=== PATIENT | female | born 1975 | race Caucasian/White ===

== ENCOUNTER 2023-03-27 17:43 | Emergency (ER) | payer OTHER, MEDICAID ==
[~2023-03-27] VITALS: Ht 162.6 cm; Wt 74.8 kg
[2023-03-27 17:44] VITALS: BP 149/69; PULSE 72; RESP 17; TEMP 97.7; O2SAT 97
--- NOTE | 2023-03-27 19:33 | NUR ---
PT IN CHAIR A
[2023-03-27] MEDS ORDERED: CYCL-711 PO (19:44)
[2023-03-27] MEDS ORDERED: IBUP-2213 PO (19:44)
[2023-03-27] MEDS ORDERED: ACET-10509 PO (19:44)
[2023-03-27] MEDS ORDERED: IBUPROFEN 600 MG TAB PO ONE (20:00)
[2023-03-27] MEDS ORDERED: ACETAMINOPHEN EXTRA STRENGTH 500 MG TAB PO ONE (20:00)
[2023-03-27] MEDS ORDERED: CYCLOBENZAPRINE 10 MG TAB PO ONE (20:00)
--- NOTE | 2023-03-27 20:16 | NUR ---
Patient discharged with v/s stable. Written and verbal after care instructions given and explained. Patient verbalized understanding. Ambulatory with steady gait. All questions addressed prior to discharge. Advised to follow up with PMD.
== END 2023-03-27 20:16 | disposition home or self-care (01) ==
LOC: MED 17:43
DX: S29.011A Strain of muscle and tendon of front wall of thorax, initial encounter (principal); S40.212A Abrasion of left shoulder, initial encounter; M54.50 Low back pain, unspecified; V49.88XA Car occupant (driver) (passenger) injured in other specified transport accidents, initial encounter; Y93.89 Activity, other specified; Y92.89 Other specified places as the place of occurrence of the external cause; Y99.8 Other external cause status
CPT/HCPCS: 71045; 99284